=== PATIENT | male | born 1975 | race Caucasian/White ===

== ENCOUNTER 2024-06-14 05:45 | Emergency (ER) | payer BC, SELFPAY ==
[2024-06-14] MEDS ORDERED: Dexamethasone 10 MG/ML VIAL ONE (06:10)
[2024-06-14] MEDS ORDERED: Morphine 4 MG/ML VIAL ONE (06:11)
== END 2024-06-14 06:18 | disposition home or self-care (01) ==
LOC: ERS 05:45
DX: M79.642 Pain in left hand (principal)
CPT/HCPCS: 96372; 99283; J1100; J2270